=== PATIENT | male | born 1975 | race Caucasian/White ===

== ENCOUNTER 2022-07-23 13:38 | Inpatient (IN) | payer BC ==
[~2022-07-23] VITALS: Ht 185.4 cm; Wt 111.1 kg
[2022-07-23 13:42] VITALS: BP_SYST 149
[2022-07-23] MEDS ORDERED: iohexoL 350 mgI/mL, 100 ML INFUS..BTL IV ONE (14:01)
[2022-07-23 14:06] LABS: BASOPHILS % (AUTO) 0.6 % (0.0-2.0); EOSINOPHILS # (AUTO) 0.4 K/uL (0.0-0.4); EOSINOPHILS % (AUTO) 4.4 % (0.0-4.0); HEMATOCRIT 41.3 % (36-54); MEAN CORPUSCULAR VOLUME 78 fL (79.0-98.0); MONOCYTES # (AUTO) 0.7 K/uL (0.0-1.0); MONOCYTES % (AUTO) 7.8 % (1.7-9.3); NEUTROPHILS # (AUTO) 5.3 K/uL (1.8-7.7); NEUTROPHILS % (AUTO) 63.2 % (40.0-70.0); PLATELET COUNT (AUTO) 325 K/uL (130-430); RED BLOOD CELL COUNT(AUTO) 5.32 MIL/uL (4.2-6.2); RED CELL DISTRIBUTION WIDTH 13.5 % (9.0-15.0); WHITE BLOOD COUNT (AUTO) 8.3 K/uL (4.8-10.8)
[2022-07-23 14:22] LABS: ANION GAP 8 (5-15); CALCIUM 9.1 mg/dL (8.4-11.0); CHLORIDE 101 mmol/L (98-107); GLUCOSE 262 mg/dL (70-99); POTASSIUM 4.2 mmol/L (3.5-5.1); UREA NITROGEN, BLOOD 19 mg/dL (8-21)
[2022-07-23 14:30] LABS: ALANINE AMINOTRANSFERASE 19 U/L (12-78); ALBUMIN 3.7 g/dL (3.4-4.8); ASPARTATE AMINOTRANSFERASE 10 U/L (10-37); TOTAL BILIRUBIN 0.3 mg/dL (0.0-1.0)
[2022-07-23 14:31] LABS: PROTHROMBIN TIME 10.3 SECS (9.5-12.5)
[2022-07-23 14:32] LABS: GFR AFRICAN AMERICAN 103 mL/min (>90)
[2022-07-23] MEDS ORDERED: DOCUSATE SODIUM 100 MG CAPSULE PO PRN (16:15)
[2022-07-23] MEDS ORDERED: LORazepam 2 MG/ML VIAL IVP PRN (16:15)
[2022-07-23] MEDS ORDERED: ZOLPIDEM TARTRATE 5 MG TABLET PO PRN (16:15)
[2022-07-23] MEDS ORDERED: MORPHINE 2 MG/ML INJ. SYRINGE IVP PRN ×2 (16:15)
[2022-07-23] MEDS ORDERED: POTASSIUM CHLORIDE 20 MEQ TAB.PRT.SR PO PRN (16:15)
[2022-07-23] MEDS ORDERED: ONDANSETRON HCL 4 MG/2 ML VIAL IVP PRN (16:15)
[2022-07-23] MEDS ORDERED: ACETAMINOPHEN 325 MG TABLET PO PRN (16:15)
[2022-07-23] MEDS ORDERED: MUPIROCIN 2% TOPICAL OINTMENT 22 GM NS PRN (16:15)
[2022-07-23] MEDS ORDERED: MAGNESIUM SULFATE 50 ML IV PRN (16:15)
[2022-07-23] MEDS ORDERED: DEXTROSE 50% JECT 50 ML DISP.SYRIN IVP PRN (16:30)
[2022-07-23] MEDS ORDERED: D5NS 1,000 ML IV SCH (17:00)
[2022-07-23] MEDS: NACL 0.9% 1,000 ML IV SCH (17:13)
[2022-07-23] MEDS ORDERED: DULA4.5P SUBCUT (17:37)
[2022-07-23] MEDS ORDERED: METF1000 PO (17:37)
[2022-07-23] MEDS ORDERED: SIMV-43 PO (17:37)
[2022-07-23] MEDS ORDERED: LIS20 PO (17:37)
[2022-07-23 21:02] VITALS: BP_SYST 140
[2022-07-23] MEDS: metFORMIN HCL 500 MG TABLET PO SCH (22:00)
[2022-07-23] MEDS: SIMVASTATIN 20 MG TABLET PO SCH (22:21)
[2022-07-23] MEDS: INSULIN LISPRO SLIDING SCALE 100 UNITS/ML VIAL (humaLOG) SUBCUT PRN (22:25)
[2022-07-24] VITALS: BP_SYST 114
[2022-07-24] MEDS: NACL 0.9% 1,000 ML IV SCH ×2 (05:03→15:05)
[2022-07-24 07:35] LABS: CALCIUM 8.6 mg/dL (8.4-11.0); CREATININE 0.73 mg/dL (0.55-1.30); POTASSIUM 3.8 mmol/L (3.5-5.1)
[2022-07-24 07:38] LABS: BASOPHILS % (AUTO) 0.5 % (0.0-2.0); EOSINOPHILS # (AUTO) 0.4 K/uL (0.0-0.4); EOSINOPHILS % (AUTO) 4.5 % (0.0-4.0); HEMATOCRIT 35.3 % (36-54); LYMPHOCYTES # (AUTO) 2.8 K/uL (1.0-5.5); LYMPHOCYTES % (AUTO) 30.9 % (20.5-51.5); MEAN CORPUSCULAR VOLUME 78 fL (79.0-98.0); MONOCYTES # (AUTO) 0.7 K/uL (0.0-1.0); MONOCYTES % (AUTO) 8.2 % (1.7-9.3); NEUTROPHILS # (AUTO) 5.1 K/uL (1.8-7.7); NEUTROPHILS % (AUTO) 55.9 % (40.0-70.0); PLATELET COUNT (AUTO) 202 K/uL (130-430); RED BLOOD CELL COUNT(AUTO) 4.51 MIL/uL (4.2-6.2); RED CELL DISTRIBUTION WIDTH 13.6 % (9.0-15.0); WHITE BLOOD COUNT (AUTO) 9.1 K/uL (4.8-10.8)
[2022-07-24 08:00] VITALS: BP_SYST 126
[2022-07-24] MEDS: metFORMIN HCL 500 MG TABLET PO SCH ×2 (08:00→17:10)
[2022-07-24] MEDS ORDERED: metFORMIN HCL 500 MG TABLET PO SCH (08:00)
[2022-07-24] MEDS: ASPIRIN 81 MG TABLET(ECOTRIN) PO SCH (08:36)
[2022-07-24] MEDS: lisinopriL 20 MG TABLET PO SCH (08:37)
[2022-07-24] MEDS: INSULIN LISPRO SLIDING SCALE 100 UNITS/ML VIAL (humaLOG) SUBCUT PRN ×2 (12:55→20:58)
[2022-07-24 15:07] VITALS: BP_SYST 145
[2022-07-24 16:00] VITALS: BP_SYST 121
[2022-07-24 19:45] VITALS: BP_SYST 115
[2022-07-24 20:50] LABS: BARBITURATE, URINE NEGATIVE (NEG <=200); BENZODIAZEPINE, URINE NEGATIVE (NEG <=150); CANNABINOID, URINE NEGATIVE (NEG <=50); COCAINE, URINE NEGATIVE (NEG <=150); METHAMPHETAMINES SCREEN,URINE NEGATIVE (NEG <=500); OPIATE, URINE NEGATIVE (NEG <=100); PHENCYCLIDINE SCREEN,URINE NEGATIVE (NEG <=25); UR TRICYCLIC ANTIDEPRESSANTS NEGATIVE (NEG <=300); URINE AMPHETAMINE NEGATIVE (NEG <=500); URINE METHADONE NEGATIVE (NEG <=200); URINE OXYCODONE SCREEN NEGATIVE (NEG <=100); URINE PROPOXYPHENE SCREEN NEGATIVE (NEG <=300)
[2022-07-24] MEDS: SIMVASTATIN 20 MG TABLET PO SCH (20:55)
[2022-07-24] MEDS ORDERED: SIMVASTATIN 20 MG TABLET PO SCH (21:00)
[2022-07-25 00:40] VITALS: BP_SYST 107
[2022-07-25] MEDS: NACL 0.9% 1,000 ML IV SCH (04:04)
[2022-07-25 08:33] LABS: BASOPHILS # (AUTO) 0.1 K/uL (0.0-0.2); BASOPHILS % (AUTO) 0.6 % (0.0-2.0); EOSINOPHILS # (AUTO) 0.4 K/uL (0.0-0.4); EOSINOPHILS % (AUTO) 4.1 % (0.0-4.0); HEMATOCRIT 36.6 % (36-54); LYMPHOCYTES # (AUTO) 2.5 K/uL (1.0-5.5); LYMPHOCYTES % (AUTO) 26.6 % (20.5-51.5); MEAN CORPUSCULAR VOLUME 78 fL (79.0-98.0); MONOCYTES # (AUTO) 0.8 K/uL (0.0-1.0); MONOCYTES % (AUTO) 8.1 % (1.7-9.3); NEUTROPHILS # (AUTO) 5.7 K/uL (1.8-7.7); NEUTROPHILS % (AUTO) 60.6 % (40.0-70.0); PLATELET COUNT (AUTO) 174 K/uL (130-430); RED BLOOD CELL COUNT(AUTO) 4.67 MIL/uL (4.2-6.2); RED CELL DISTRIBUTION WIDTH 13.4 % (9.0-15.0); WHITE BLOOD COUNT (AUTO) 9.4 K/uL (4.8-10.8)
[2022-07-25 08:35] LABS: CALCIUM 8.7 mg/dL (8.4-11.0); CREATININE 0.73 mg/dL (0.55-1.30); POTASSIUM 3.9 mmol/L (3.5-5.1)
[2022-07-25 08:39] VITALS: BP_SYST 133
[2022-07-25] MEDS: ASPIRIN 81 MG TABLET(ECOTRIN) PO SCH (08:58)
[2022-07-25] MEDS: lisinopriL 20 MG TABLET PO SCH (08:58)
[2022-07-25] MEDS ORDERED: Aspirin Ec PO (09:09)
[2022-07-25] MEDS ORDERED: CARVEDILOL 6.25 MG TABLET (COREG) PO ONE (10:30)
[2022-07-25 10:46] VITALS: BP_SYST 122
[2022-07-25] MEDS ORDERED: metFORMIN HCL 500 MG TABLET PO SCH (18:00)
[2022-07-25] MEDS ORDERED: CARVEDILOL 6.25 MG TABLET (COREG) PO SCH (21:00)
[2022-07-25] MEDS ORDERED: SACUBITRIL/VALSARTAN 24 MG-26 MG 1 TABLET PO SCH (21:00)
[2022-07-26] MEDS ORDERED: SACUBITRIL/VALSARTAN 24 MG-26 MG 1 TABLET PO SCH (09:00)
== END 2022-07-25 13:25 | disposition left against medical advice (07) | DRG 65 ==
LOC: SED 13:38 → STU 16:20
PROVIDERS: ADMIT General Practice; ATTEND General Practice
DX: I63.9 Cerebral infarction, unspecified (principal); I42.0 Dilated cardiomyopathy; I10 Essential (primary) hypertension; E11.43 Type 2 diabetes mellitus with diabetic autonomic (poly)neuropathy; G90.8 Other disorders of autonomic nervous system; E66.01 Morbid (severe) obesity due to excess calories; Z20.822 Contact with and (suspected) exposure to COVID-19; R29.701 NIHSS score 1; E78.5 Hyperlipidemia, unspecified; Z53.29 Procedure and treatment not carried out because of patient's decision for other reasons; E78.00 Pure hypercholesterolemia, unspecified; G83.31 Monoplegia, unspecified affecting right dominant side; Z79.899 Other long term (current) drug therapy; Z79.84 Long term (current) use of oral hypoglycemic drugs; Z79.82 Long term (current) use of aspirin; Z87.891 Personal history of nicotine dependence; Z68.32 Body mass index [BMI] 32.0-32.9, adult
CPT/HCPCS: 36415; 70450-TC; 70496; 70498; 70551; 71045; 76376; 80048; 80053; 80061; 80307; 82962; 83036; 83735; 83880; 84484; 85025; 85610-TC; 85730-TC; 93005; 93306; 99291; G0378; Q9967